=== PATIENT | male | born 1940 | race Caucasian/White ===

== ENCOUNTER → 2023-12-11 15:42 | Outpatient (REF) | payer MEDICARE, SELFPAY ==
[2023-12-11 17:07] LABS: % Basophils 0.8 % (0-2); % Eosinophils 8.3 % (0-6); % Immature Granulocytes 0.4 % (0-0.5); % Lymphocytes 17.7 % (20.5-51.1); % Monocytes 9.8 % (1.7-9.3); Absolute Eosinophils 0.4 10^3/uL (0-0.7); Absolute Lymphocytes 0.9 10^3/uL (1.2-3.4); Absolute Monocytes 0.5 10^3/uL (0.1-0.6); Absolute Neutrophils 3.3 10^3/uL (1.4-6.5); Hematocrit 34.5 % (39.0-52.0); Hemoglobin 11.2 g/dL (13.0-18.0); Mean Corp Hgb Conc. 32.5 g/dL (33.0-37.0); Mean Corpuscular Hgb 31.9 pg (27.0-31.0); Mean Corpuscular Volume 98.3 fL (80.0-94.0); Nucleated Red Blood Cells % 0 % (-); Platelet Count 183 10^3/uL (130-400); Red Blood Cell Count 3.51 10^6/uL (4.70-6.10); Red Cell Dist. Width 14.6 % (11.5-14.5); White Blood Cell Count 5.2 10^3/uL (4.8-10.8)
[2023-12-11 17:28] LABS: ALT (SGPT) 13 U/L (0-50); AST (SGOT) 25 U/L (17-59); Albumin 4.1 g/dl (3.5-5.0); Alkaline Phosphatase 135 U/L (38-126); Blood Urea Nitrogen 16 mg/dl (9-20); Calcium 9.8 mg/dl (8.4-10.2); Carbon Dioxide 28 mmol/L (22-30); Chloride 105 mmol/L (98-107); Glucose 85 mg/dl (70-99); Potassium 4.3 mmol/L (3.5-5.1); Sodium 142 mmol/L (135-145); Total Bilirubin 0.4 mg/dl (0.2-1.3); eGFR > 60.00
[2023-12-11 18:01] LABS: Testosterone, Total < 4.9 ng/dl (72-623)
== END ==
LOC: REG 15:42
PROVIDERS: ATTENDING PHYSICIAN Internal Medicine Hematology & Oncology
DX: C61 Malignant neoplasm of prostate (principal); C79.51 Secondary malignant neoplasm of bone; Z15.03 Genetic susceptibility to malignant neoplasm of prostate
CPT/HCPCS: 36415; 80053; 84153; 84403; 85025

== ENCOUNTER 2023-12-16 10:07 | Emergency (ER) | payer MEDICARE, SELFPAY ==
[2023-12-16 10:21] VITALS: BP 127/70
[2023-12-16 10:22] VITALS: BP 127/70
--- NOTE | 2023-12-16 10:40 | ED.GENMED ---
History of Present Illness
<Milagro Castillo HACK SAW OPERATOR - Last Filed: 12/16/23 18:37>
General
Chief Complaint: Fall
Source: patient and family (daughter at bedside)
Exam Limitations: none
Time Seen by Provider: 12/16/23 10:16
Nursing documentation reviewed up to this point in time: agreed with
History of Present Illness
History of Present Illness:
83 yo male from [place] here for checkup after fall x2. Daughter states he rolled out of bed 6 a.m. and staff found him sitting next to the bed, awake, alert baseline mental state and no injury.
Daughter went to visit him at 9:30 a.m. and found him on his back on the floor, baseline mental state, the furniture/articles around him in disarray.
Pt w h/o connor. 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 Hard C collar on. Denies weakness in extremities.
Past History
<Milagro Castillo HACK SAW OPERATOR - Last Filed: 12/16/23 18:37>
Past History
ED Past Medical History: Arrthythmia (a fib), CAD, GERD, Hypercholesterolemia, Hypothyroidism and Psychiatric (anxiety)
ED Past Surgical History: Cardiac (CABG x 3 on 10/27/23) and Orthopedic
Social History
Tobacco: Non-smoker
Alcohol: None
Personal:
Living: with family
Employment: Retired
Review of Systems
<Milagro Castillo HACK SAW OPERATOR - Last Filed: 12/16/23 18:37>
Review of Systems
Allergies reviewed?: Yes
All Other Systems: ROS reviewed and negative except as documented in HPI and ROS
Constitutional: Denies fever
Respiratory: Denies trouble breathing
Cardiac: Denies chest pain
ABD/GI: Denies abdominal pain, nausea, vomiting or diarrhea
: Denies dysuria or difficulty voiding
Musculoskeletal: Reports neck pain and back pain (low back pain)
Skin: Reports no symptoms
Neurological: Denies dizzy, headache, weakness or numbness
Phy Exam
<Milagro Castillo HACK SAW OPERATOR - Last Filed: 12/16/23 18:37>
Physical Exam
Physical Exam:
GENERAL: No acute distress. A&Ox3.
CONSTITUTIONAL: Afebrile.
EYES: PERRL, conjunctivae normal
ENMT: moist mucus membranes, Pharynx nl
RESPIRATORY: Regular respirations, nonlabored, lungs clear.
CARDIOVASCULAR: Regular rate and rhythm, no murmurs, no rubs.
GI: Soft, nontender, normal BS
MUSCULOSKELETAL: No c spine tenderness to palpation. Hard collar on. Subjective low back pain. Moving all extremities well with no significant pain. Moves with ease. Well perfused.
SKIN: Warm, dry, pink
PSYCH: Depressed mood and affect. Well kept, interactive.
NEUROLOGIC: Awake, alert and oriented to 'hospital' states '1950' as date. Somnolent but easily arouses then drifts back to sleep, daughter at bedside states that's normal for him if he hasn't had good sleep. No focal neurological deficits
Course
<Milagro Castillo, HACK SAW OPERATOR - Last Filed: 12/16/23 18:37>
Orders/Labs/Results
Orders:
Orders
12/16/23 10:15
Electrocardiogram (*1) Urgent
Reason for Study: Syncope
EKG- Treatment ONCE
12/16/23 10:39
CT Head W/o Iv Contrast Urgent
Comment:
Reason For Exam: fall on eliquis/clopidogril
Cervical Spine wo Contrast CT [CT Cervical Spine W/o Iv Contr] Urgent
Comment:
Reason For Exam: fall on Eliquis
0.9% Sodium Chloride 500 ml [Nss] 500 ml IV BOLUS
12/16/23 10:50
Complete Blood Count/With Diff Urgent
Protime/PTT Urgent
12/16/23 10:54
CR Lumbar Spine 2 Or 3 Views Urgent
Reason For Exam: pain after fall
12/16/23 11:18
Comprehensive Metabolic Panel Urgent
Creatine Phosphokinase Urgent
Comment: ADD ON
Troponin I Urgent
12/16/23 11:38
Prothrombin Complex(Pcc),Human [Kcentra] 2,156 unit Empty Viaflex Container 100 ml [Viaflex Empty Container] 80 ml IV NOW
12/16/23 11:42
CT Head Angio W/wo Iv Contrast Urgent
Comment:
Reason For Exam: brain bleed, Neurosurgeon request
12/16/23 11:54
CR Thoracic Spine 3 Views Urgent
Comment:
Reason For Exam: pain after fall
Elbow, Left [CR Elbow - Left Min 3 Views ] Urgent
Comment:
Reason For Exam: pain after fall
12/16/23 11:55
CR Chest Single View Urgent
Comment:
Reason For Exam: pain after fall, recent CABG
12/16/23 12:03
Add On- LAB Urgent
Tests Added?: CPK
Abnormal Lab Results
12/16/23 12/16/23
10:50 11:18
RBC 3.33 L 10^6/uL
(4.70-6.10)
Hgb 10.4 L g/dL
(13.0-18.0)
Hct 31.8 L %
(39.0-52.0)
MCV 95.5 H fL
(80.0-94.0)
MCH 31.2 H pg
(27.0-31.0)
MCHC 32.7 L g/dL
(33.0-37.0)
MPV 11.9 H fL
(7.4-10.4)
Absolute Lymphs (auto) 0.5 L 10^3/uL
(1.2-3.4)
Absolute Monos (auto) 0.7 H 10^3/uL
(0.1-0.6)
Neutrophils % 82.6 H %
(42.2-75.2)
Lymphocytes % 7.0 L %
(20.5-51.1)
Monocytes % 9.5 H %
(1.7-9.3)
PT 15.8 H Sec
(11.4-14.6)
Chloride 109 H mmol/L
(98-107)
Creatinine 0.6 L mg/dL
(0.7-1.3)
Glucose 100 H mg/dl
(70-99)
Troponin I 0.061 H* ng/ml
Total Protein 5.9 L g/dl
(6.3-8.2)
Albumin 3.3 L g/dl
(3.5-5.0)
12/16/23 10:50
12/16/23 11:18
Vital Signs
Initial and Last Documented VS:
Initial Vital Signs
Resp
16
12/16/23 10:18
Last Documented Vital Signs
Temp Pulse Resp BP Pulse Ox
98.8 F 84 37 110/76 99
12/16/23 10:21 12/16/23 13:45 12/16/23 13:45 12/16/23 13:07 12/16/23 13:15
Lead Caster consulted with Physician
Lead Caster consulted with physician?: Yes
Name of Physician Consulted: Luciana
<Hoang Chowdhury MD - Last Filed: 12/16/23 14:36>
Orders/Labs/Results
Orders:
Orders
12/16/23 10:15
Electrocardiogram (*1) Urgent
Reason for Study: Syncope
EKG- Treatment ONCE
12/16/23 10:39
CT Head W/o Iv Contrast Urgent
Comment:
Reason For Exam: fall on eliquis/clopidogril
Cervical Spine wo Contrast CT [CT Cervical Spine W/o Iv Contr] Urgent
Comment:
Reason For Exam: fall on Eliquis
0.9% Sodium Chloride 500 ml [Nss] 500 ml IV BOLUS
12/16/23 10:50
Complete Blood Count/With Diff Urgent
Protime/PTT Urgent
12/16/23 10:54
CR Lumbar Spine 2 Or 3 Views Urgent
Reason For Exam: pain after fall
12/16/23 11:18
Comprehensive Metabolic Panel Urgent
Creatine Phosphokinase Urgent
Comment: ADD ON
Troponin I Urgent
12/16/23 11:38
Prothrombin Complex(Pcc),Human [Kcentra] 2,156 unit Empty Viaflex Container 100 ml [Viaflex Empty Container] 80 ml IV NOW
12/16/23 11:42
CT Head Angio W/wo Iv Contrast Urgent
Comment:
Reason For Exam: brain bleed, Neurosurgeon request
12/16/23 11:54
CR Thoracic Spine 3 Views Urgent
Comment:
Reason For Exam: pain after fall
Elbow, Left [CR Elbow - Left Min 3 Views ] Urgent
Comment:
Reason For Exam: pain after fall
12/16/23 11:55
CR Chest Single View Urgent
Comment:
Reason For Exam: pain after fall, recent CABG
12/16/23 12:03
Add On- LAB Urgent
Tests Added?: CPK
Abnormal Lab Results
12/16/23 12/16/23
10:50 11:18
RBC 3.33 L 10^6/uL
(4.70-6.10)
Hgb 10.4 L g/dL
(13.0-18.0)
Hct 31.8 L %
(39.0-52.0)
MCV 95.5 H fL
(80.0-94.0)
MCH 31.2 H pg
(27.0-31.0)
MCHC 32.7 L g/dL
(33.0-37.0)
MPV 11.9 H fL
(7.4-10.4)
Absolute Lymphs (auto) 0.5 L 10^3/uL
(1.2-3.4)
Absolute Monos (auto) 0.7 H 10^3/uL
(0.1-0.6)
Neutrophils % 82.6 H %
(42.2-75.2)
Lymphocytes % 7.0 L %
(20.5-51.1)
Monocytes % 9.5 H %
(1.7-9.3)
PT 15.8 H Sec
(11.4-14.6)
Chloride 109 H mmol/L
(98-107)
Creatinine 0.6 L mg/dL
(0.7-1.3)
Glucose 100 H mg/dl
(70-99)
Troponin I 0.061 H* ng/ml
Total Protein 5.9 L g/dl
(6.3-8.2)
Albumin 3.3 L g/dl
(3.5-5.0)
12/16/23 10:50
12/16/23 11:18
Vital Signs
Initial and Last Documented VS:
Initial Vital Signs
Resp
16
12/16/23 10:18
Last Documented Vital Signs
Temp Pulse Resp BP Pulse Ox
98.8 F 84 37 110/76 99
12/16/23 10:21 12/16/23 13:45 12/16/23 13:45 12/16/23 13:07 12/16/23 13:15
<Milagro Castillo NP - Last Filed: 12/16/23 18:37>
MDM/Problems Addressed
Differential Diagnosis Includes:
Brain bleed, concussion
C spine fx
T-L spine fx
MDM/Problems Addressed:
83 yo male from [place] here for checkup after fall x2. Daughter states he rolled out of bed 6 a.m. and staff found him sitting next to the bed, awake, alert baseline mental state and no injury.
Daughter went to visit him at 9:30 a.m. and found him on his back on the floor, baseline mental state, the furniture/articles around him in disarray.
Pt w h/o connor. 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 Hard C collar on. Denies weakness in extremities.
Afebrile, NAD
EKG: NSR, long Q-T
11:21 AM
CBC: No clinically significant abnormality
CMP: No clinically significant abnormality
Consulted Neurosurgeon: Dr. Agrawal: Requests CTA head, Kcentra, keep systolic BP <140, transfer to [facility].
Daughter states pt had 'normal brain MRI' in [place] in September this year.
Troponin 0.061.
Daughter and patient updated on dx and plan
Dr. Chowdhury in to see pt.
Pt states he did hit his head, recalls falling states he was reaching for something and fell.
Normocephalic. Pt undressed, log rolled, tender T 12- L1 spine.
11:50 Radiology reports brain bleed
11:55: Head CT: Radiology report: IMPRESSION:
1. Multiple foci of separate intraparenchymal hemorrhage bilaterally as detailed above. Intraventricular hemorrhage within both lateral ventricles. Small amount of subarachnoid hemorrhage.
2. Differential diagnosis includes hemorrhagic metastasis, anticoagulation related bleeding, underlying vascular malformations, among others.
Cervical spine CT: no acute finding
Arrangements for transfer to [facility] in progress
No change on re evaluation, remains stable
12:47 PM spoke with [facility] accepting physician Dr. Dobbs, report given, OK to transfer ACL ground.
CT head angio with and without IV contrast: Radiology report read: No evidence of aneurysm or significant AV malformation.
X-ray L-spine and T-spine radiology reports read: Shows no acute fracture. DJD
Chest x-ray: NAD
Left elbow x-ray read by this examiner: No fracture
1:51 PM
Patient remained stable, unchanged on reevaluation. Daughter remains at bedside
Critical care statement: A total of 40 minutes of critical care time was provided for this patient. This includes management of vital signs, evaluation of the patient at bedside, reviewing the patient's pertinent medical records, discussion with
consultants, review of old EKGs and review of pertinent medical records. This time with separate from time utilized to perform the aforementioned documented procedures
2:15 P.M
Pt stable, transferred out.
Chronic conditions affecting care: CAD and Arrhythmia (afib on Eliquis)
<Milagro Castillo HACK SAW OPERATOR - Last Filed: 12/16/23 18:37>
*Critical Care Note
Total Time (30-74mins, 75-104mins- exclusive of procedures): Not Applicable
ED Attending Note
<Milagro Castillo HACK SAW OPERATOR - Last Filed: 12/16/23 18:37>
-
Portions of this chart may have been created with voice recognition software.� Occasional wrong word or��sound alike� substitutions may have occurred due to the inherent limitations of voice recognition software.
<Hoang Chowdhury MD - Last Filed: 12/16/23 14:36>
ED Attending Note
Patient seen and examined by attending physician: Yes
ED Attending Note:
I have seen and evaluated the patient with a [id number] encounter. I have spoken to the advance practicer provider and involved in the medical history, the physical exam, medical decision making.
Evaluation and management service: agree unless noted differently below.
Results interpretation: agree unless noted differently below.
Focused HPI: 83-year-old male with past medical history of metastatic prostate cancer, hyperlipidemia, CAD status post CABG, atrial fibrillation on Eliquis who presents to the emergency department from [facility] after unwitnessed fall.
Apparently found by staff this morning sitting next to the bed appeared to have slid out of bed but no injuries and normal mental status and so was placed back in the bed. Daughter apparently came to visit and around 9:30 AM she found him once
again on the floor now flat on his back next to the bed. He was somewhat lethargic and complaining of low back pain. Was brought to the emergency room.
Physical exam: Patient is laying in bed, drowsy but easily arousable�GCS is 13 (E3 V4 M6). He has no signs of significant head trauma. Pupils are equal round and reactive to light bilaterally. He has a cervical collar in place. He has no signs
of trauma to the back or flank but he does have some slight lumbar tenderness. He has a hematoma on the left elbow. He is moving his upper extremities through good range of motion without too much discomfort. Allows for passive range of motion in
the lower extremities bilaterally with no pain including in the hips. He has good pulses in all extremities. He has no tenderness in his abdomen or chest wall.
Medical Decision Makin-year-old male who is on anticoagulation presents after apparently 2 falls today�initially found sitting on the ground and then later in the morning found lying on his back after an apparent fall out of bed. Increasingly
lethargy and also complaining of back pain. Vital signs are normal. Exam as above. IV was placed and basic labs sent. He was sent for a CT of the head as well as CT of the cervical spine. Will check lumbar spine x-ray as well as an x-ray of the
thoracic spine and elbow given his complaint of diffuse back pain and his left elbow hematoma. Will monitor closely reassess after the above.
CT head shows multiple foci of separate intraparenchymal hemorrhage as well as intraventricular hemorrhage, small mount of subarachnoid hemorrhage. Kcentra ordered for anticoagulant reversal. Case discussed with neurosurgery who recommended CT
angio to better evaluate for any signs of arterial bleed. Will arrange for transfer to [facility]�nurse practitioner discussed with trauma surgeon there to for transfer to trauma service given that patient was found down. CT of the
cervical spine was negative for any acute pathology but given his GCS of 13 will maintain cervical collar for now. X-rays reviewed and show no acute posttraumatic injury. Will monitor pending transport to [facility]. Daughter at bedside and
updated.
Discharge Plan
Departure
Patient Disposition: Acute Care Hospital
Date of Disposition: 12/16/23
Time of Disposition: 13:43
Condition: Serious
Discharge Problem:
Acute cerebral hemorrhage, Fall
Prescriptions:
No Action
sennosides [senna] 8.6 mg Tablet
17.2 mg PO DAILY
acetaminophen [Tylenol] 325 mg Tablet
650 mg PO Q6HPRN PRN (Reason: MILD PAIN)
acetaminophen [Tylenol] 325 mg Tablet
650 mg PO BID
lidocaine 4 % Adhesive Patch,Medicated
1 patch TOPICAL DAILY
polyethylene glycol 3350 [Miralax] 17 gram Powder In Packet
17 g PO DAILY@1300
clopidogrel [Plavix] 75 mg Tablet
75 mg PO DAILY
ascorbic acid (vitamin C) [Vitamin C] 500 mg Tablet
500 mg PO DAILY
mirtazapine 15 mg Tablet
15 mg PO HS
levothyroxine [Synthroid] 112 mcg Tablet
112 mcg PO DAILY
metoprolol tartrate 25 mg Tablet
25 mg PO BID
cholecalciferol (vitamin D3) [Vitamin D3] 25 mcg (1,000 unit) Tablet
25 mcg PO DAILY
omeprazole 20 mg Tablet,Delayed Release (Dr/Ec)
20 mg PO DAILY
Eliquis 5 mg Tablet
5 mg PO BID
Repatha SureClick 140 mg/mL Pen Injector
140 mg SC Q2W
Xtandi 40 mg Tablet
80 mg PO QPM
Referrals:
Beatriz Eric, [Family Provider] -
Hospital Transfer
Other hospital: [facility]
I certify that the patient requires transfer: Yes
Discussed case with accepting physician: Dr. Dobbs
Reason for transfer: higher level of care
Interventions
Interventions:
*Risk Screen - Suicide Last Done: 12/16/23 10:45
*General Assessment Last Done: 12/16/23 10:44
*Neglect/Abuse Screening Last Done: 12/16/23 10:44
ED- Fall Risk Assessment Last Done: 12/16/23 14:16
*ED COVID-19 Vaccine History Last Done: 12/16/23 10:44
*Nursing Disposition Last Done: 12/16/23 14:16
ED-Musculoskeletal Assessment Last Done: 12/16/23 10:45
ED- Neurological Assessment Last Done: 12/16/23 13:37
ED-Skin Assessment Last Done: 12/16/23 10:45
Discharge Date and Time
Discharge Date/Time: 12/16/23 14:15
Print Language: NORWEGIAN
[2023-12-16 10:43] VITALS: BMI 24.5
[2023-12-16 10:58] LABS: % Basophils 0.1 % (0-2); % Eosinophils 0.3 % (0-6); % Immature Granulocytes 0.5 % (0-0.5); % Monocytes 9.5 % (1.7-9.3); % Neutrophils 82.6 % (42.2-75.2); Absolute Lymphocytes 0.5 10^3/uL (1.2-3.4); Absolute Monocytes 0.7 10^3/uL (0.1-0.6); Absolute Neutrophils 6.3 10^3/uL (1.4-6.5); Hematocrit 31.8 % (39.0-52.0); Hemoglobin 10.4 g/dL (13.0-18.0); Mean Corp Hgb Conc. 32.7 g/dL (33.0-37.0); Mean Corpuscular Hgb 31.2 pg (27.0-31.0); Mean Corpuscular Volume 95.5 fL (80.0-94.0); Mean Platelet Volume 11.9 fL (7.4-10.4); Nucleated Red Blood Cells % 0 % (-); Platelet Count 145 10^3/uL (130-400); Red Blood Cell Count 3.33 10^6/uL (4.70-6.10); Red Cell Dist. Width 14.4 % (11.5-14.5); White Blood Cell Count 7.6 10^3/uL (4.8-10.8)
[2023-12-16 11:00] VITALS: BP 125/72
[2023-12-16 11:40] LABS: ALT (SGPT) 16 U/L (0-50); AST (SGOT) 32 U/L (17-59); Albumin 3.3 g/dl (3.5-5.0); Alkaline Phosphatase 98 U/L (38-126); Blood Urea Nitrogen 13 mg/dl (9-20); Carbon Dioxide 25 mmol/L (22-30); Chloride 109 mmol/L (98-107); Estimated Creatinine Clearance 106 ml/min; Glucose 100 mg/dl (70-99); Potassium 3.9 mmol/L (3.5-5.1); Sodium 140 mmol/L (135-145); Total Bilirubin 0.8 mg/dl (0.2-1.3); Total Protein 5.9 g/dl (6.3-8.2); eGFR > 60.00
[2023-12-16 11:55] LABS: INR 1.28; PT 15.8 Sec (11.4-14.6)
[2023-12-16 11:56] LABS: Troponin I 0.061 ng/ml
[2023-12-16 11:56] LABS: APTT 25.8 Sec (23.4-35.0)
[2023-12-16] MEDS: NSS 500 IV (12:00)
[2023-12-16 12:01] VITALS: BP 137/82
[2023-12-16] MEDS: KCENTRA 80 UNIT IV (12:01)
[2023-12-16 12:35] LABS: Creatine Phosphokinase 131 U/L (55-170)
[2023-12-16 12:41] VITALS: BP 142/68
[2023-12-16 13:07] VITALS: BP 110/76
== END 2023-12-16 14:15 | disposition short-term general hospital (02) ==
LOC: EMR 10:07
PROVIDERS: Registered Nurse; EMERGENCY PHYSICIAN Emergency Medicine; FAMILY PHYSICIAN Hospitalist
DX: S06.2XAA Diffuse traumatic brain injury with loss of consciousness status unknown, initial encounter (principal); W19.XXXA Unspecified fall, initial encounter; I48.91 Unspecified atrial fibrillation; I25.10 Atherosclerotic heart disease of native coronary artery without angina pectoris; K21.9 Gastro-esophageal reflux disease without esophagitis; E78.00 Pure hypercholesterolemia, unspecified; E03.9 Hypothyroidism, unspecified; F41.9 Anxiety disorder, unspecified; Z79.01 Long term (current) use of anticoagulants; Z85.46 Personal history of malignant neoplasm of prostate; Z95.1 Presence of aortocoronary bypass graft
CPT/HCPCS: 99285; 96365; 70450; 70496; 71045; 72072; 72100; 72125; 73080; 80053; 82550; 84484; 85025; 85610; 85730; 93005; J7168; Q9967